=== PATIENT | male | born 1950 | race Caucasian/White ===

== ENCOUNTER → 2016-05-05 | Outpatient (CLI) | payer MEDICARE ==
--- NOTE | 2016-05-05 15:21 | RADRPT ---
EXAM DATE/TIME: 05/05/2016 00:00 [place] COMPARISON: No previous studies available for comparison. INDICATIONS : Claudication TECHNIQUE: Five-station segmental examination of the lower extremities was performed pre and post extercise. Pulsed-cuff waveform tracings and pressures were recorded. Ankle-brachial indices and toe-brachial indices were calculated. PRESSURES (mmHg): Pre Exercise: Brachial (arm): Right 108 Left 113 Lower Thigh: Right 65 Left 147 Calf: Right 120 Left 147 Ankle: Right 108 Left 150 ALISIA: Right 0.96 Left 1.33 TBI: Right 0.94 Left 1.27 Post Exercise: Brachial (arm): Left 150 Not applicable Ankle: Right 193 Left 166 PULSED CUFF WAVEFORMS: Demonstrate normal amplitude bilaterally. CONCLUSION: Unremarkable segmental evaluation of the lower extremities. Truong Pendleton MD on May 05, 2016 at 15:19 Board Certified Radiologist. This report was verified electronically.
== END ==
LOC: HCAV 12:28
DX: I70.219 Atherosclerosis of native arteries of extremities with intermittent claudication, unspecified extremity (principal)
CPT/HCPCS: 93924